=== PATIENT | male | born 1975 ===

== ENCOUNTER 2016-11-12 12:30 | Emergency (ER) | payer OTHER ==
[2016-11-12] MEDS ORDERED: Sodium Chloride 0.9% 1,000 ML IV ONE (13:09)
[2016-11-12] MEDS ORDERED: Sodium Chloride 0.9% 1,000 ML ONE (13:20)
[2016-11-12 13:23] VITALS: RESP 16; TEMP 98.4
[2016-11-12 13:34] LABS: BASO % 1.8 % (0.0-2.0); EOS % 1.5 % (0.0-4.0); HEMOGLOBIN 13.7 g/dL (12.0-18.0); LYMPH # 1.4 K/uL (1.0-4.3); MEAN CELL VOLUME 84.6 fL (80.0-94.0); MEAN CORPUSCULAR HEMOGLOBIN 27.8 pg (27.0-31.0); MEAN CORPUSCULAR HGB CONC 32.9 g/dL (33.0-37.0); MEAN PLATELET VOLUME 8.8 fL (7.2-11.7); MONO # 0.4 K/uL (0.0-0.8); MONO % 12.4 % (0.0-10.0); NEUT % 35.3 % (50.0-75.0); NRBC % 0.1 % (0.0-2.0); RBC 4.91 Mil/uL (4.40-5.90); RED CELL DISTRIBUTION WIDTH 13.8 % (11.5-14.5); WHITE BLOOD COUNT 2.8 K/uL (4.8-10.8)
[2016-11-12 14:01] LABS: SQUAMOUS EPITHIAL < 1 /hpf (0-5); URINE BILIRUBIN NEGATIVE (NEGATIVE); URINE BLOOD NEGATIVE (NEGATIVE); URINE CLARITY Clear (Clear); URINE COLOR Yellow (YELLOW); URINE GLUCOSE (UA) NORMAL (Normal); URINE LEUKOCYTE ESTERASE NEG Leu/uL (Negative); URINE NITRATE NEGATIVE (NEGATIVE); URINE PROTEIN NEGATIVE (NEGATIVE); URINE UROBILINOGEN NORMAL mg/dL (0.2-1.0)
[2016-11-12 14:03] LABS: ALBUMIN 4.3 g/dL (3.5-5.0)
[2016-11-12 14:06] LABS: ALB/GLOB RATIO 1.3 (1.0-2.1); AST/SGOT 25 U/L (17-59); BLOOD UREA NITROGEN 14 mg/dL (9-20); GFR AFRICAN-AMERICAN > 60; GFR NON-AFRICAN AMERICAN > 60
[2016-11-12 14:07] LABS: ALT/SGPT 26 U/L (21-72); CALCIUM 8.8 mg/dl (8.6-10.4); LIPASE 75 U/L (23-300)
--- NOTE | 2016-11-12 14:11 | C.PDOC ---
History Of Present Illness 41 y/o male presents to the ED for evaluation of a cramping left lower quadrant abdominal pain and diarrhea which began around 4 days ago. Patient states he feels weak and tired. Otherwise, he denies fever, chills, vomiting, and back pain. Time Seen by Provider: 11/12/16 13:03 Chief Complaint (Nursing): Abdominal Pain History Per: Patient History/Exam Limitations: no limitations Onset/Duration Of Symptoms: Days (4) Current Symptoms Are (Timing): Still Present Location Of Pain/Discomfort: LLQ Quality Of Discomfort: Cramping, "Pain" Associated Symptoms: Diarrhea. denies: Fever, Chills, Nausea, Vomiting, Back Pain Last Bowel Movement: Today Additional History Per: Patient Past Medical History Reviewed: Historical Data, Nursing Documentation, Vital Signs Vital Signs: Last Vital Signs Temp 98.4 F 11/12/16 12:41 Pulse 65 11/12/16 12:41 Resp 16 11/12/16 12:41 BP 118/74 11/12/16 12:41 Pulse Ox 99 11/12/16 14:13 - Medical History PMH: No Chronic Diseases Surgical History: No Surg Hx Family History: States: Unknown Family Hx - Social History Hx Alcohol Use: No Hx Substance Use: No - Immunization History Hx Tetanus Toxoid Vaccination: No Hx Influenza Vaccination: No Hx Pneumococcal Vaccination: No Review Of Systems Constitutional: Negative for: Fever, Chills Gastrointestinal: Positive for: Abdominal Pain (LLQ), Diarrhea. Negative for: Nausea, Vomiting Musculoskeletal: Negative for: Back Pain Physical Exam - Physical Exam Appears: Non-toxic, No Acute Distress Skin: Normal Color, Warm, Dry Head: Atraumatic Eye(s): bilateral: Normal Inspection Oral Mucosa: Moist Neck: Supple Chest: Symmetrical, No Deformity, No Tenderness Cardiovascular: Rhythm Regular, No Murmur Respiratory: Normal Breath Sounds, No Rales, No Rhonchi, No Wheezing Gastrointestinal/Abdominal: Soft, Tenderness (mild to left lower quadrant on palpation ), No Guarding, No Rebound Back: Normal Inspection, No Vertebral Tenderness Extremity: Normal ROM, Capillary Refill (less than 2 seconds ) Neurological/Psych: Normal Speech, Normal Cognition ED Course And Treatment - Laboratory Results Result Diagrams: 11/12/16 13:27 11/12/16 13:27 Lab Interpretation: Normal (ua neg.) O2 Sat by Pulse Oximetry: 99 (on RA) Pulse Ox Interpretation: Normal - Other Rad CT Abd/pelvis X-Ray: Read By Radiologist (no acute findings.) Progress Note: labs and CT A/P ordered and reviewed. Patient received Pepcid IV , Toradol IV, Zofran IV, and IV Fluids. Reevaluation Time: 15:11 Reassessment Condition: Improved Medical Decision Making Medical Decision Making: no significant leukocytosis to suggest infection/colitis and CT neg. no evidence of passed ureteral stones and no h/o same. ? constipation, but no sig stool on L colon. Disposition Doctor Will See Patient In The: Office Counseled Patient/Family Regarding: Studies Performed, Diagnosis - Disposition Disposition: HOME/ ROUTINE Disposition Time: 15:12 Condition: GOOD - Clinical Impression Clinical Impression: Abdominal colic - Scribe Statement The provider has reviewed the documentation as recorded by the Scribe (Deobrah Whipple) Provider Attestation: All medical record entries made by the Scribe were at my direction and personally dictated by me. I have reviewed the chart and agree that the record accurately reflects my personal performance of the history, physical exam, medical decision making, and the department course for this patient. I have also personally directed, reviewed, and agree with the discharge instructions and disposition.
[2016-11-12] MEDS ORDERED: Iodixanol 320 MG/ML 100 ML BOTTLE IV ONE (14:15)
--- NOTE | 2016-11-12 15:08 | CT ---
PROCEDURE: CT Abdomen and Pelvis with contrast HISTORY: LLQ pain/dx4D, ureteral stone vs diveretic/colitis COMPARISON: None. TECHNIQUE: Contrast dose: 100 mL Visipaque. Axial and reformatted coronal and sagittal CT images of the abdomen and pelvis were obtained after IV contrast administration. Radiation dose: Total exam DLP = 504.52 mGy-cm. This CT exam was performed using one or more of the following dose reduction techniques: Automated exposure control, adjustment of the mA and/or kV according to patient size, and/or use of iterative reconstruction technique. FINDINGS: LOWER THORAX: Unremarkable. LIVER: Unremarkable. No gross lesion or ductal dilatation. GALLBLADDER AND BILE DUCTS: Unremarkable. PANCREAS: Unremarkable. No gross lesion or ductal dilatation. SPLEEN: Unremarkable. ADRENALS: Unremarkable. No mass. KIDNEYS AND URETERS: Unremarkable. No hydronephrosis. No solid mass. VASCULATURE: Unremarkable. No aortic aneurysm. BOWEL: Few scattered colonic diverticulosis seen without evidence of diverticulitis. . No obstruction. No gross mural thickening. APPENDIX: Normal appendix. PERITONEUM: Unremarkable. No free fluid. No free air. LYMPH NODES: Unremarkable. No enlarged lymph nodes. BLADDER: Unremarkable. REPRODUCTIVE: Unremarkable. BONES: No acute fracture. OTHER FINDINGS: None. IMPRESSION: Few colonic diverticulosis without evidence of diverticulitis. No evidence of cholecystitis pancreatitis or appendicitis.
[2016-11-12 15:18] VITALS: BP 108/68; PULSE 77; O2SAT 98
== END 2016-11-12 15:17 | disposition home or self-care (01) ==
LOC: C.ER 12:30
DX: R10.84 Generalized abdominal pain (principal)
CPT/HCPCS: 74177; 80053; 81001; 83690; 85025; 96361; 96374; 96375; 99284; J1885; J2405; J7040; Q9967